=== PATIENT | male | born 1975 | race Caucasian/White ===

== ENCOUNTER 2021-03-31 13:08 | Outpatient (REF) | payer OTHER, SELFPAY | END 2021-03-31 13:09 | disposition home or self-care (01) | LOC: HO.LAB 13:08 | PROVIDERS: PCP Internal Medicine; Visit Provider Internal Medicine | DX: Z20.822 Contact with and (suspected) exposure to COVID-19 (principal) | CPT/HCPCS: U0003; U0005 ==

== ENCOUNTER 2021-04-07 11:23 | Outpatient (REF) | payer OTHER, SELFPAY | END 2021-04-07 11:24 | disposition home or self-care (01) | LOC: HO.LAB 11:23 | PROVIDERS: PCP Internal Medicine; Visit Provider Internal Medicine | DX: Z20.822 Contact with and (suspected) exposure to COVID-19 (principal) | CPT/HCPCS: C9803; U0003; U0005 ==

== ENCOUNTER 2021-08-05 12:35 | Outpatient (REF) | payer OTHER, SELFPAY ==
[2021-08-05 14:15] LABS: Estimated Average Glucose 126 mg/dL
[2021-08-05 14:25] LABS: Alanine Aminotransferase 43 U/L (0-40); Albumin Level 4.7 g/dL (3.5-5.0); Alkaline Phosphatase 60 U/L (39-117); Anion Gap 13 (12-20); Aspartate Amino Transferase 27 U/L (5-37); Bilirubin Total 0.8 mg/dL (0.0-1.0); Blood Urea Nitrogen 12 mg/dL (9-16); Calcium 9.8 mg/dL (8.4-10.2); Carbon Dioxide 27 mmol/L (22-29); Chloride 106 mmol/L (96-108); Estimated Glomerular Filt Rate > 60; Glucose Random 85 mg/dL (60-115); Sodium 142 mmol/L (135-145); Total Protein 7.6 g/dL (6.5-8.0)
[2021-08-07 04:31] LABS: LDL Cholesterol Direct 141 mg/dL (<100)
== END 2021-08-05 12:36 | disposition home or self-care (01) ==
LOC: HO.HMGCLDS 12:35
PROVIDERS: PCP Internal Medicine; Visit Provider Internal Medicine
DX: Z00.01 Encounter for general adult medical examination with abnormal findings (principal); E66.09 Other obesity due to excess calories; R73.03 Prediabetes; G89.29 Other chronic pain; M54.9 Dorsalgia, unspecified
CPT/HCPCS: 36415; 80053; 83036; 83721

== ENCOUNTER 2022-09-30 13:02 | Outpatient (REF) | payer OTHER, SELFPAY ==
--- NOTE | ~2022-09-30 | XR_ITS ---
EXAMINATION: XR KNEE AP STANDING CLINICAL INFORMATION: Pain and bilateral knee. COMPARISON: None available. TECHNIQUE: AP bilateral standing view of the knees was obtained. Lateral view each knee. FINDINGS: BILATERAL AP KNEE STANDING: The medial and lateral compartment joint space is maintained normal. No loose bodies, bony erosive changes, acute fracture or dislocation seen. LEFT KNEE: There is mild anterior superior patellar enthesophyte. No joint effusion seen. There are no loose bodies and no acute fracture. RIGHT KNEE: There is moderate anterior superior patellar enthesophyte with minimal suprapatellar joint effusion. No loose bodies or bony erosive changes. XR/XR knee standing BI IMPRESSION: 1. Bilateral anterior superior patellar enthesophytes. 2. Minimal right knee suprapatellar joint effusion. 3. No acute fracture or dislocation. The tricompartment joint space is normal.
[2022-09-30 14:16] LABS: Estimated Average Glucose 120 mg/dL; Hemoglobin A1C 149.1775 umol/L; Hemoglobin A1c % 5.8 %
[2022-09-30 15:04] LABS: Alanine Aminotransferase 48 U/L (0-40); Albumin Level 4.7 g/dL (3.5-5.0); Alkaline Phosphatase 72 U/L (39-117); Anion Gap 12 (12-20); Aspartate Amino Transferase 36 U/L (5-37); Bilirubin Total 0.6 mg/dL (0.0-1.0); Blood Urea Nitrogen 13 mg/dL (9-16); Calcium 9.6 mg/dL (8.4-10.2); Carbon Dioxide 28 mmol/L (22-29); Chloride 107 mmol/L (96-108); Estimated Glomerular Filt Rate > 60; Glucose Random 80 mg/dL (60-115); Potassium 4.3 mmol/L (3.3-5.1); Sodium 143 mmol/L (135-145); Total Protein 7.3 g/dL (6.5-8.0); Uric Acid 8.3 mg/dL (3.4-7.0)
[2022-10-02 12:54] LABS: Lyme Abs Screen <0.90 index
== END 2022-09-30 13:03 | disposition home or self-care (01) ==
LOC: HO.HMGCLDS 13:02
PROVIDERS: PCP Internal Medicine; Visit Provider Internal Medicine
DX: M25.562 Pain in left knee (principal); M25.561 Pain in right knee; E66.09 Other obesity due to excess calories; R73.03 Prediabetes; M13.80 Other specified arthritis, unspecified site; I10 Essential (primary) hypertension
CPT/HCPCS: 36415; 73565; 80053; 83036; 84550; 86617; 86618

== ENCOUNTER 2023-07-06 11:14 | Outpatient (AMB) | payer OTHER, SELFPAY ==
[2023-07-06 11:15] VITALS: BP 128/80; PULSE 62; O2SAT 99; BMI 34.0
--- NOTE | 2023-07-06 11:15 | A.OFFPC_ITS ---
Vital Signs 07/06/23 11:15 Height 5 ft 10 in Weight 237 lb BMI 34.0 BP 128/80 Blood Pressure Location Lt brachial Position Sitting Pulse 62 Pulse Source Pulse Oximeter Pulse Oximetry (%) 99 Oxygen Delivery Method Room Air Intake Visit Reasons: Med review Allergies No Known Allergies Allergy (Verified 07/06/23 11:16) Medication List - Last Reconciled 07/06/23 by Shasha Dean MD atenolol 25 mg PO DAILY 90 days Tobacco use date assessed: 07/06/23 Dental Screening Dental Screen Date: 07/06/23 Did you have a dental visit in the last 12 months?: No Did you have a dental problem in the last 6 months where you did not have access to dental care?: No Was dental information given to patient?: Patient has dentist HPI Med review HPI Details Patient is a 47-year-old gentleman with history of hypertension primary osteoarthritis multiple joints came today for regular follow-up appointment Patient was last seen September of 2022 usually comes in every six-month missed his follow-up appointment. He is due for labs His blood pressure is stable he is taking atenolol 25 mg and is tolerating medication without any side effects. BMI is elevated patient is trying to lose weight. Smoke marijuana to sleep at night only [facility], [facility] Social History Housing: House Patient Tobacco Use Status: Never used Tobacco e-Cigarette/Vaping Use: Never Used Current occupational status: employed Cognitive needs: No Hearing needs: No Vision needs: No Questionnaire PHQ-9 Over the last 2 weeks, how often have you been bothered by any of the following problems? 1. Little interest or pleasure in doing things: not at all 2. Feeling down, depressed, or hopeless: not at all 3. Trouble falling or staying asleep, or sleeping too much: not at all 4. Feeling tired or having little energy: not at all 5. Poor appetite or overeating: not at all 6. Feeling bad about yourself - or that you are a failure or have let yourself or your family down: not at all 7. Trouble concentrating on things, such as reading the newspaper or watching television: not at all 8. Moving or speaking so slowly that other people could have noticed. Or the opposite - being so fidgety or restless that you have been moving around a lot more than usual: not at all 9. Thoughts that you would be better off or of hurting yourself in some way: not at all Total score: 0 Depression Screening Interpretation: Negative Depression Screening Done: Yes 13441 - PHQ-9 Billing: Yes Source: Developed by Drs. Kevin Aguilar, Juan Diego Raza and colleagues, with an educational alejandro from [employer]. Thrive Questionnaire Date Thrive assessed: 07/06/23 I am a: Patient What is your living situation today?: I have a steady place to live Within the past 12 months, did the food you bought not last and you didn't have the money to get more?: Never true Within the past 12 months, did you worry whether your food would run out before you got money to buy more?: Never true Do you have trouble paying for medicines?: No Do you have trouble getting transportation to medical appointments?: No Do you have trouble paying your heating and electricity bill?: No Do you have trouble taking care of your child, family member or friend?: No Do you have trouble with day-to-day activities such as bathing, preparing meals, shopping, managing finances, etc.?: No Are you currently unemployed and looking for a job?: No Are you interested in more education?: Yes Please select the resources that you would like help with: None Currently or been in a relationship where the following occur: no concerns reported ELAINE-7 AMB Questionnaire ELAINE-7 Date ELAINE - 7 assessed: 07/06/23 Feeling nervous, anxious, or on edge: 0 = Not at all Not being able to stop or control worryin = Not at all Worrying too much about different things: 0 = Not at all Trouble relaxin = Not at all Being so restless that it is hard to sit still: 0 = Not at all Becoming easily annoyed or irritable: 0 = Not at all Feeling afraid as if something awful might happen: 0 = Not at all Total ELAINE-7 score (0-4 normal; 5-9 mild; 10-14 moderate; 15-21 severe): 0 Source: Developed by Freya Bob Kurt Kroenke and colleagues, with an educational alejandro from [employer]. ELAINE-7 Assessment Billing ELAINE-7 Assessment Tool: ELAINE-7 Assessment 11738 Review of Systems Const Denies chills and Denies fever(s) ENT Denies epistaxis and Denies nasal discharge Card Denies chest pain Resp Denies chest congestion, Denies cough and Denies hemoptysis GI Denies diarrhea and Denies nausea Skin/Breast Denies rash Neuro Reports no additional complaints Psych Reports no additional complaints Endo Reports no additional complaints Physical exam (Primary Care) Vital Signs: Last Vital Signs Pulse 62 07/06/23 11:15 BP 128/80 07/06/23 11:15 Pulse Ox 99 07/06/23 11:15 Oxygen Delivery Method Room Air 07/06/23 11:15 BMI result Body Mass Index 34.0 Tobacco/Smoking Status: Tobacco use Status Tobacco use date assessed 07/06/23 07/06/23 11:16 Patient Tobacco Use Status Never used Tobacco 07/06/23 11:16 e-Cigarette/Vaping Use Never Used 07/06/23 11:16 PHQ-9: PHQ-9 Score PHQ-9: Total score 0 07/06/23 11:37 Depression Screening Interpretation: Negative Thrive Assessment: Date of Thrive Assessment Date Thrive assessed 07/06/23 07/06/23 11:37 Currently or been in a relationship where the following occur: no concerns rep orted Const General: cooperative, comfortable and no acute distress Orientation/consciousness: patient oriented x3 HENMT Head: Yes normocephalic Eyes General: appearance normal, both eyes and all related structures Neck Neck: Yes supple Resp Effort & Inspection: normal respiratory effort, no cough and no stridor Cardio Rhythm: regular rhythm Heart sounds: S1 normal heart sound present and S2 normal heart sound present Skin General skin exam: turgor normal Neuro General: patient oriented x3, tone normal and moves all extremities Extrem Right lower extremity: no edema Left lower extremity: no edema Assessment and Plan Assessment & Plan (1) Hypertension, essential: Code(s): I10 - Essential (primary) hypertension (2) Obesity due to excess calories: Code(s): E66.09 - Other obesity due to excess calories Qualifiers: Body mass index: BMI 34.0-34.9 Obesity classification: adult class 1 (BMI 30 - 34.9) Serious obesity comorbidity presence: with serious comorbidity Qualified Code(s): E66.09 - Other obesity due to excess calories; Z68.34 - Body mass index [BMI] 34.0-34.9, adult (3) Pre-diabetes: Code(s): R73.03 - Prediabetes (4) Osteoarthritis involving multiple joints on both sides of body: Code(s): M15.9 - Polyosteoarthritis, unspecified Plan Patient is a 47-year-old gentleman with history of hypertension primary osteoarthritis multiple joints came today for regular follow-up appointment Patient was last seen September of 2022 usually comes in every six-month missed his follow-up appointment. He is due for labs His blood pressure is stable he is taking atenolol 25 mg and is tolerating medication without any side effects. BMI is elevated patient is trying to lose weight. Smoke marijuana to sleep at night only Medications: Refilled atenolol 25 mg PO DAILY 90 tabs 0RF 90 days Coding Level of Care Code Est Pt Level 4 (67703) Diagnoses Hypertension, essential I10 Class 1 obesity due to excess calories with serious comorbidity and body mass index (BMI) of 34.0 to 34.9 in adult E66.09; Z68.34 Body mass index: BMI 34.0-34.9 Obesity classification: adult class 1 (BMI 30 - 34.9) Serious obesity comorbidity presence: with serious comorbidity Pre-diabetes R73.03 Osteoarthritis involving multiple joints on both sides of body M15.9 Additional Codes ELAINE-7 Assessment Billing - ELAINE-7 Assessment Tool: ELAINE-7 Assessment [id number] ([id number])
== END 2023-07-06 11:34 | disposition home or self-care (01) ==
PROVIDERS: PCP Internal Medicine; Visit Provider Internal Medicine
DX: I10 Essential (primary) hypertension (principal); E66.09 Other obesity due to excess calories; Z68.34 Body mass index [BMI] 34.0-34.9, adult; R73.03 Prediabetes; M15.9 Polyosteoarthritis, unspecified
CPT/HCPCS: 99214

== ENCOUNTER 2024-12-08 10:52 | Outpatient (AMB) | payer OTHER, SELFPAY ==
[2024-12-08 10:54] VITALS: BP 136/86; PULSE 65; RESP 16; TEMP 37.1; O2SAT 97; BMI 31.9
--- NOTE | 2024-12-08 10:54 | A.OFFPC_ITS ---
Vital Signs 12/08/24 10:54 Height 5 ft 10 in Weight 222 lb 6 oz BMI 31.9 BP 136/86 Blood Pressure Location Rt brachial Position Sitting Respiration 16 Pulse 65 Pulse Source Pulse Oximeter Temp 98.7 F Temp Source Oral Pulse Oximetry (%) 97 Oxygen Delivery Method Room Air Intake Visit Reasons: Pulled muscle-back Allergies No Known Allergies Allergy (Verified 12/08/24 10:58) Medication List - Last Reconciled 12/08/24 by Shasha Dean MD atenolol 25 mg PO DAILY 90 days Tobacco use date assessed: 12/08/24 Dental Screening Dental Screen Date: 12/08/24 Did you have a dental visit in the last 12 months?: No Did you have a dental problem in the last 6 months where you did not have access to dental care?: No Was dental information given to patient?: Patient has dentist HPI Pulled muscle-back HPI Details History - The patient is a 49-year-old male who was last seen more than a year ago presenting with right-sided mid back pain - The back pain began approximately six weeks ago after lifting a transmission while at work. - The patient describes intermittent mus ean spasms and states that the pain sometimes wraps around to the front. - Pain severity increases with certain m ovements, prolonged sleep, or after being active. - Ibuprofen has been used intermittently for pain relief, though the patient is uncertain of its effectiveness. - The patient also reports a history of back muscle spasms and lumbar pain. - The patient ceased taking atenolol and has not consulted a doctor about blood pressure since June of last year. Current self-reported blood pressure is 136. 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 - Recent dietary changes resulting in we ight loss due to new job Medications - Ibuprofen intermittently for pain waqas brendon - Previously prescribed atenolol for hyp ertension (discontinued) Problem List - Hypertension - Mid-back pain - Prediabetes - noncardiac chest pain in the back - obesity - LFTs Diagnostic results Labs: - Previous liver enzyme elevation Patient Instructions - Take pain medication as needed diclof enic 75 mg bid with food - cyclobenzaprin 10 mg at bed time - Avoid straining, lifting, and twisting to allow the back to heal - Schedule a follow-up appointment in x weeks to two months - Labs and x-rays to be completed as ord ered - Monitor blood pressure and seek timely care if necessary Review of Systems General: No fever no chills neurological: No headaches no dizziness ear nose throat: No sore throat no hearing difficulty no ear pain cardiovascular: No syncope, no palpitations gastrointestinal: No nausea vomiting or diarrhea endocrine: No polyuria polydipsia no heat intolerance genitourinary: No dysuria skin: No new complaints Physical Exam general: No acute distress HEENT: No acute findings neck: Supple respiratory system: Able to talk in full sentences, no audible wheeze, no stridor Chest: Tender over 6 so 7 rib posteriorly next 2 mid back, pain with deep breathing as well cardiovascular: S1-S2 RRR gastrointestinal: No right upper quadrant pain extremities: No new findings X [employer]: Alert, awake, oriented x3, motor sensory intact skin: Normal turgor [facility] Social History Housing: House Patient Tobacco Use Status: Never used Tobacco e-Cigarette/Vaping Use: Never Used Current occupational status: employed Cognitive needs: No Hearing needs: No Vision needs: No Questionnaire PHQ-9 Over the last 2 weeks, how often have you been bothered by any of the following problems? 1. Little interest or pleasure in doing things: not at all 2. Feeling down, depressed, or hopeless: not at all 3. Trouble falling or staying asleep, or sleeping too much: several days 4. Feeling tired or having little energy: several days 5. Poor appetite or overeating: several days 6. Feeling bad about yourself - or that you are a failure or have let yourself or your family down: not at all 7. Trouble concentrating on things, such as reading the newspaper or watching television: not at all 8. Moving or speaking so slowly that other people could have noticed. Or the opposite - being so fidgety or restless that you have been moving around a lot more than usual: several days 9. Thoughts that you would be better off or of hurting yourself in some way: not at all Total score: 4 Depression Screening Interpretation: Negative Depression Screening Done: Yes 70748 - PHQ-9 Billing: Yes Source: Developed by Drs. Kevin Aguilar, Freya Valladares, Juan Diego Blanchard and colleagues, with an educational alejandro from [employer]. Thrive Questionnaire Date Thrive assessed: 12/08/24 I am a: Patient What is your living situation today?: I have a steady place to live Within the past 12 months, did the food you bought not last and you didn't have the money to get more?: Sometimes True Within the past 12 months, did you worry whether your food would run out before you got money to buy more?: Sometimes True Do you have trouble paying for medicines?: No Do you have trouble getting transportation to medical appointments?: No Do you have trouble paying your heating and electricity bill?: No Do you have trouble taking care of your child, family member or friend?: No Do you have trouble with day-to-day activities such as bathing, preparing meals, shopping, managing finances, etc.?: No Are you currently unemployed and looking for a job?: No Are you interested in more education?: Yes Please select the resources that you would like help with: None Currently or been in a relationship where the following occur: No concerns reported THRIVE Score: 2 AUDIT C Alcohol Use Questionnaire (AUDIT-C) 1. How often do you have a drink containing alcohol?: Monthly or less 2. How many drinks containing alcohol do you have on a typical day when you are drinking?: 1 or 2 3. How often do you have six or more drinks on one occasion?: Never Total Score: 1 Score Reviewed/Action Taken: Yes ELAINE-7 AMB Questionnaire ELAINE-7 Date ELAINE - 7 assessed: 12/08/24 Feeling nervous, anxious, or on edge: 1 = Several days Not being able to stop or control worryin = Not at all Worrying too much about different things: 1 = Several days Trouble relaxin = Several days Being so restless that it is hard to sit still: 1 = Several days Becoming easily annoyed or irritable: 1 = Several days Feeling afraid as if something awful might happen: 1 = Several days Total ELAINE-7 score (0-4 normal; 5-9 mild; 10-14 moderate; 15-21 severe): 6 Source: Developed by Drs. Kevin Aguilar, Freya Valladares, Juan Diego Blanchard and colleagues, with an educational alejandro from [employer]. ELAINE-7 Assessment Billing ELAINE-7 Assessment Tool: ELAINE-7 Assessment 57313 Physical exam (Primary Care) Vital Signs: Last Vital Signs Temp 98.7 F 12/08/24 10:54 Pulse 65 12/08/24 10:54 Resp 16 12/08/24 10:54 BP 136/86 12/08/24 10:54 Pulse Ox 97 12/08/24 10:54 Oxygen Delivery Method Room Air 12/08/24 10:54 BMI result Body Mass Index 31.9 Tobacco/Smoking Status: Tobacco use Status Tobacco use date assessed 12/08/24 12/08/24 10:55 Patient Tobacco Use Status Never used Tobacco 12/08/24 10:55 e-Cigarette/Vaping Use Never Used 12/08/24 10:55 PHQ-9: PHQ-9 Score PHQ-9: Total score 4 12/08/24 11:12 Depression Screening Interpretation: Negative Thrive Assessment: Date of Thrive Assessment Date Thrive assessed 12/08/24 12/08/24 10:55 Currently or been in a relationship where the following occur: No concerns reported Coding Level of Care Code Est Pt Level 4 (26823) Diagnoses Rib pain on right side R07.81 Hypertension, essential I10 Class 1 obesity due to excess calories with serious comorbidity and body mass index (BMI) of 34.0 to 34.9 in adult E66.09; Z68.34 Body mass index: BMI 34.0-34.9 Obesity classification: adult class 1 (BMI 30 - 34.9) Serious obesity comorbidity presence: with serious comorbidity Pre-diabetes R73.03 LFT elevation R79.89 Mid back pain M54.9 Additional Codes ELAINE-7 Assessment Billing - ELAINE-7 Assessment Tool: ELAINE-7 Assessment 00542 ([id number]) PHQ-9 - 24493 - PHQ-9 Billing: Yes ([id number]) Assessment & Plan Assessment & Plan (1) Rib pain on right side: Code(s): R07.81 - Pleurodynia Category: Medical (2) Hypertension, essential: Code(s): I10 - Essential (primary) hypertension Category: Medical (3) Obesity due to excess calories: Code(s): E66.09 - Other obesity due to excess calories Category: Medical Qualifiers: Body mass index: BMI 34.0-34.9 Obesity classification: adult class 1 (BMI 30 - 34.9) Serious obesity comorbidity presence: with serious comorbidity Qualified Code(s): E66.09 - Other obesity due to excess calories; Z68.34 - Body mass index [BMI] 34.0-34.9, adult (4) Pre-diabetes: Code(s): R73.03 - Prediabetes Category: Medical (5) LFT elevation: Code(s): R79.89 - Other specified abnormal findings of blood chemistry Category: Medical (6) Mid back pain: Code(s): M54.9 - Dorsalgia, unspecified Category: Medical Plan History - The patient is a 49-year-old male who was last seen more than a year ago presenting with right-sided mid back pain - The back pain began approximately six weeks ago after lifting a transmission while at work. - The patient describes intermittent muscle spasms and states that the pain sometimes wraps around to the front. - Pain severity increases with certain movements, prolonged sleep, or after being active. - Ibuprofen has been used intermittently for pain relief, though the patient is uncertain of its effectiveness. - The patient also reports a history of back muscle spasms and lumbar pain. - The patient ceased taking atenolol and has not consulted a doctor about blood pressure since June of last year. Current self-reported blood pressure is 136. Medical History: - History of hypertension - Prior incidents of back muscle spasms - Previous lumbar pain - Prediabetes - obesity Social History: - Works in the automotive industry, involving heavy lifting and physical activity - Recent dietary changes resulting in weight loss due to new job Medications - Ibuprofen intermittently for pain management - Previously prescribed atenolol for hypertension (discontinued) Problem List - Hypertension - Mid-back pain - Prediabetes - noncardiac chest pain in the back - obesity - LFTs Diagnostic results Labs: - Previous liver enzyme elevation Patient Instructions - Take pain medication as needed diclofenic 75 mg bid with food - cyclobenzaprin 10 mg at bed time - Avoid straining, lifting, and twisting to allow the back to heal - Schedule a follow-up appointment in six weeks to two months - Labs and x-rays to be completed as ordered - Monitor blood pressure and seek timely care if necessary Orders: Orders LDL Cholesterol Direct Today E66.09 - Other obesity due to excess calories, I10 - Essential (primary) hypertension, R73.03 - Prediabetes, R79.89 - Other specified abnormal findings of blood chemistry, Z68.34 - Body mass index [BMI] 34.0-34.9, adult Vitamin D 25-OH (D2 and D3) Today E66.09 - Other obesity due to excess calories, I10 - Essential (primary) hypertension, R73.03 - Prediabetes, R79.89 - Other specified abnormal findings of blood chemistry, Z68.34 - Body mass index [BMI] 34.0-34.9, adult XR ribs RT min 3V w CXR1V Today R07.81 - Pleurodynia Complete Blood Count Auto Diff Today E66.09 - Other obesity due to excess calories, I10 - Essential (primary) hypertension, R73.03 - Prediabetes, R79.89 - Other specified abnormal findings of blood chemistry, Z68.34 - Body mass index [BMI] 34.0-34.9, adult Comprehensive Met. Panel Today E66.09 - Other obesity due to excess calories, I10 - Essential (primary) hypertension, R73.03 - Prediabetes, R79.89 - Other specified abnormal findings of blood chemistry, Z68.34 - Body mass index [BMI] 34.0-34.9, adult TSH reflex Free T4 Today E66.09 - Other obesity due to excess calories, I10 - Essential (primary) hypertension, R73.03 - Prediabetes, R79.89 - Other specified abnormal findings of blood chemistry, Z68.34 - Body mass index [BMI] 34.0-34.9, adult Hemoglobin A1c Today R73.03 - Prediabetes Medications: New diclofenac sodium 75 mg PO BID 10 days 20 tabs 0RF pain cyclobenzaprine 10 mg PO BEDTIME PRN 30 tabs 0RF muscle spasm Refilled atenolol 25 mg PO DAILY 90 days 90 tabs 0RF
== END 2024-12-08 11:14 | disposition home or self-care (01) ==
LOC: HO.HMCC 10:53
PROVIDERS: PCP Internal Medicine; Visit Provider Internal Medicine
DX: R07.81 Pleurodynia (principal); I10 Essential (primary) hypertension; E66.09 Other obesity due to excess calories; Z68.34 Body mass index [BMI] 34.0-34.9, adult; R73.03 Prediabetes; R79.89 Other specified abnormal findings of blood chemistry; M54.9 Dorsalgia, unspecified

== ENCOUNTER 2024-12-08 10:52 | Outpatient (REF) | payer OTHER, SELFPAY ==
--- NOTE | ~2024-12-08 | XR_ITS ---
EXAMINATION: XR RIBS, RIGHT CLINICAL INFORMATION: R07.81 - Pleurodynia COMPARISON: Chest x-ray 06/22/2018 TECHNIQUE: 3 views of the right ribs and AP chest were obtained. FINDINGS: Heart and the stomach contours are within normal limits. The lungs are clear and well expanded. No pneumothorax is identified. No change. Ribs demonstrate no deformity, cortical offset or step-off, and no fracture lines. XR/XR ribs RT min 3V w CXR1V IMPRESSION: Unremarkable examination. Electronically signed by: Charbel Ayala MD 12/08/2024 11:51 AM EDT
[2024-12-08 12:57] LABS: MANUAL DIFF FLAG NO
[2024-12-08 13:17] LABS: Basophils Percent Auto 0.5 % (0-2); Eosinophils Absolute Auto 0.2 X10*3/uL (0.0-0.4); Eosinophils Percent Auto 2.3 % (0-4); Hematocrit 42.6 % (42.0-52.0); Hemoglobin 15.1 g/dl (14.0-18.0); Imm Gran Abs Auto 0.01 X10*3/uL (0.00-0.03); Imm Gran Pct Auto 0.1 % (0.0-0.4); Lymphocytes Absolute Auto 2.1 X10*3/uL (1.2-4.9); Lymphocytes Percent Auto 28.6 % (20-40); Mean Corpuscular HGB Conc 35.4 g/dl (31.0-36.0); Mean Corpuscular Volume 87.5 fL (80.0-98.0); Mean Platelet Volume 10.5 fL (9.4-12.4); Monocytes Absolute Auto 0.5 X10*3/uL (0.1-1.2); Monocytes Percent Auto 6.5 % (2-11); Neutrophils Absolute Auto 4.5 x10*3/uL (2.0-8.3); Platelet Count 227 X10*3/uL (160-400); Red Blood Count 4.87 X10*6/uL (4.60-5.80); Red Cell Distribution Width 12.8 % (11.0-16.0); White Blood Count 7.3 X10*3/uL (4.8-10.8)
[2024-12-08 13:32] LABS: Estimated Average Glucose 117 mg/dL; Hemoglobin A1C 152.5209 umol/L; Hemoglobin A1c % 5.7 % (<6.0)
[2024-12-08 13:42] LABS: Alanine Aminotransferase 43 U/L (0-40); Alkaline Phosphatase 68 U/L (39-117); Anion Gap 12 (12-20); Aspartate Amino Transferase 37 U/L (5-37); Bilirubin Total 0.9 mg/dL (0.0-1.0); Blood Urea Nitrogen 12 mg/dL (9-16); Calcium 9.8 mg/dL (8.4-10.2); Carbon Dioxide 25 mmol/L (22-29); Chloride 107 mmol/L (96-108); Estimated Glomerular Filt Rate > 60; Glucose Random 118 mg/dL (60-115); Potassium 4.1 mmol/L (3.3-5.1); Sodium 140 mmol/L (135-145); TSH reflex Free T4 2.41 uIU/mL (0.32-4.0); Total Protein 7.7 g/dL (6.5-8.0)
[2024-12-09 06:54] LABS: LDL Cholesterol Direct 154 mg/dL (<100)
[2024-12-13 15:29] LABS: Vitamin D 25-OH, D2 <4 ng/mL; Vitamin D 25-OH, D3 28 ng/mL; Vitamin D 25-OH, Total 28 ng/mL (30-100)
== END 2024-12-08 10:53 | disposition home or self-care (01) ==
LOC: HO.HMGCX 10:52
PROVIDERS: PCP Internal Medicine; Visit Provider Internal Medicine
DX: R07.81 Pleurodynia (principal); I10 Essential (primary) hypertension; E66.09 Other obesity due to excess calories; Z68.34 Body mass index [BMI] 34.0-34.9, adult; R73.03 Prediabetes; R79.89 Other specified abnormal findings of blood chemistry; M54.9 Dorsalgia, unspecified; Z13.31 Encounter for screening for depression
CPT/HCPCS: 36415; 71101; 80053; 82306; 83036; 83721; 84443; 85025; 96127

== ENCOUNTER → 2024-12-08 11:16 | Outpatient (BNV) | payer OTHER, SELFPAY | PROVIDERS: PCP Internal Medicine; Visit Provider Radiology Diagnostic Radiology | DX: R07.81 Pleurodynia (principal) | CPT/HCPCS: 71101 ==

== ENCOUNTER 2025-01-19 10:24 | Outpatient (AMB) | payer OTHER, SELFPAY ==
[2025-01-19 10:30] VITALS: BP 136/88; PULSE 86; RESP 16; TEMP 36.6; O2SAT 98; BMI 31.4
--- NOTE | 2025-01-19 10:30 | A.OFFPC_ITS ---
Vital Signs 01/19/25 10:30 Height 5 ft 10 in Weight 219 lb BMI 31.4 BP 136/88 Blood Pressure Location Lt brachial Position Sitting Respiration 16 Pulse 86 Pulse Source Pulse Oximeter Temp 97.8 F Temp Source Oral Pulse Oximetry (%) 98 Intake Visit Reasons: Annual PE Opinion Polls Survey Worker Required: No Allergies No Known Allergies Allergy (Verified 01/19/25 10:30) Medication List - Last Reconciled 01/19/25 by Shasha Dean MD atenolol 25 mg PO DAILY 90 days Tobacco use date assessed: 12/08/24 Dental Screening Dental Screen Date: 12/08/24 HPI Annual PE HPI Details History of Present Illness - The patient is a 49 year old male pres enting for an annual physical examination. - Previously experienced low back pain, which has subsided with medication (diclofenac). No acute pain noted now, but occasional mild discomfort if strained. - History of hyperlipidemia with LDL lev els approximately 140s-150s since 2021, latest LDL at 154. - Recent symptoms include difficulty uri nating on a single occasion, resolved after a hot shower. - Noticed a temporary small, hard mass i n the scrotum that comes and goes, previously diagnosed with a benign cyst in adolescence. - Reports occasional sensation of food g etting stuck if eating too quickly, no persistent swallowing difficulties. - Mild knee discomfort resolved with rec ent weight loss. - Experienced occasional trouble with ur inary frequency, history of familial prostate issues. 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 - Reports previous weight loss, currentl y with BMI of 31.4, categorized as obese. - Discussed lifestyle changes, including further weight loss as part of health maintenance. Family History: - Positive family history of prostate pr oblems (father). Health Maintenance - Current cholesterol needs monitoring, with LDL ideally less than 130. - BMI classified as obese; recommended w eight target is below 200 pounds. - Vitamin D supplementation advised at 1 000 IU daily. - Due for colonoscopy, appointment to be scheduled. - Tetanus vaccination recommended; compl eted during the visit. 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 Diagnostic results - Labs: Bloodwork from November indicates no rmal CBC, electrolytes, kidney function, and liver enzymes. However, LDL is elevated at 154. - Rib X-ray: Normal. Patient Instructions - Lose more weight to target at least 20 pounds reduction to move out of obesity range. - Take vitamin D supplement, 1000 IU carole ly. - Schedule and prepare for a colonoscopy ; follow directives for bowel preparation. - Continue monitoring blood pressure at home and maintain under 140/90. - Follow up in six months for hypertensi on management. - Urinary consultation for difficulty ur ination and testicular abnormalities Review of Systems - General: No fever no chills - Neurological: No headaches no dizzin ess - Ear nose throat: No sore throat no hearing difficulty no ear pain - Cardiovascular: No syncope, no chest pain, no palpitations - Gastrointestinal: No nausea vomiting or diarrhea - Endocrine: No polyuria polydipsia no heat intolerance - Genitourinary: No dysuria - Skin: No new complaints Physical Exam General: Cooperative, healthy appearing, comfortable, no acute distress Orientation: Patient oriented x3 Head: Normal to inspection Ears: Within normal limit visually Nose: Normal external nose present Face and sinus: Normal facial exam Eyes: Appearance normal, extraocular movement intact pupils reactive Neck: Normal visual inspection and supple Respiratory: Normal respiratory effort and able to speak in complete sentences. Clear to auscultation, no stridor Cardiovascular: S1 and S2 RRR GI: Normal to inspection. Soft to palpation and nontender Skin: Turgor normal, no acute findings, benign mole noted Neuro: Patient oriented x3, motor sensory intact, balance intact, tandem pass Extremities: Normal to inspection, knees improved with weight loss, no swelling or sweating [facility] Surgical History No pertinent past surgical history Social History Housing: House Patient Tobacco Use Status: Never used Tobacco e-Cigarette/Vaping Use: Never Used Current occupational status: employed Cognitive needs: No Hearing needs: No Vision needs: No Questionnaire Thrive Questionnaire Date Thrive assessed: 01/19/25 I am a: Patient What is your living situation today?: I have a steady place to live Within the past 12 months, did the food you bought not last and you didn't have the money to get more?: Sometimes True Within the past 12 months, did you worry whether your food would run out before you got money to buy more?: Sometimes True Do you have trouble paying for medicines?: No Do you have trouble getting transportation to medical appointments?: No Do you have trouble paying your heating and electricity bill?: No Do you have trouble taking care of your child, family member or friend?: No Do you have trouble with day-to-day activities such as bathing, preparing meals, shopping, managing finances, etc.?: No Are you currently unemployed and looking for a job?: No Are you interested in more education?: Yes Please select the resources that you would like help with: None Currently or been in a relationship where the following occur: No concerns reported THRIVE Score: 2 ELAINE-7 AMB Questionnaire ELAINE-7 Date ELAINE - 7 assessed: 12/08/24 Source: Developed by Drs. Kevin Aguilar, Freya Valladares, Juan Diego Blanchard and colleagues, with an educational alejandro from [employer]. Physical exam (Primary Care) Vital Signs: Last Vital Signs Temp 97.8 F 01/19/25 10:30 Pulse 86 01/19/25 10:30 Resp 16 01/19/25 10:30 BP 136/88 01/19/25 10:30 Pulse Ox 98 01/19/25 10:30 BMI result Body Mass Index 31.4 Tobacco/Smoking Status: Tobacco use Status Tobacco use date assessed 12/08/24 01/19/25 10:31 Patient Tobacco Use Status Never used Tobacco 01/19/25 10:31 e-Cigarette/Vaping Use Never Used 01/19/25 10:31 Thrive Assessment: Date of Thrive Assessment Date Thrive assessed 01/19/25 01/19/25 10:31 Currently or been in a relationship where the following occur: No concerns reported Immunizations Boostrix Tdap 2.5 Lf unit-8 mcg-5 Lf/0.5 mL intramuscular syringe Performing Provider: Shasha Dean MD Performing Location: [facility] Administered by: Johnathan Frazier CMA on 01/19/25 11:13 Dose Route Admin Location Dispensed Lot Number Expiration Date [facility] Industrial Custodian 0.5 mL IM Left Deltoid 0.5 mL [id number] 02/24/27 [id number] [employer] Total Dispensed Waste 0.5 mL 0 % VIS Given Date VIS Provided VIS Publication Date 01/19/25 Single Vaccine 21 Eligibility Eligibility Date Funding Source Not [facility] Eligible 01/19/25 Private Coding Level of Care Code Est Pt Level 3 (83234) Est Pt Prev Care 40-64y(71821) Diagnoses Encounter for general adult medical examination with abnormal findings Z00.01 Colon cancer screening Z12.11 Difficulty urinating R39.198 Hypertension, essential I10 LFT elevation R79.89 Class 1 obesity due to excess calories with serious comorbidity and body mass index (BMI) of 34.0 to 34.9 in adult E66.09; Z68.34 Body mass index: BMI 34.0-34.9 Obesity classification: adult class 1 (BMI 30 - 34.9) Serious obesity comorbidity presence: with serious comorbidity Assessment & Plan Assessment & Plan (1) Encounter for general adult medical examination with abnormal findings: Code(s): Z00.01 - Encounter for general adult medical examination with abnormal findings Category: Medical (2) Colon cancer screening: Code(s): Z12.11 - Encounter for screening for malignant neoplasm of colon Category: Medical (3) Difficulty urinating: Code(s): R39.198 - Other difficulties with micturition Category: Medical (4) Hypertension, essential: Code(s): I10 - Essential (primary) hypertension Category: Medical (5) LFT elevation: Code(s): R79.89 - Other specified abnormal findings of blood chemistry Category: Medical (6) Obesity due to excess calories: Code(s): E66.09 - Other obesity due to excess calories Category: Medical Qualifiers: Body mass index: BMI 34.0-34.9 Obesity classification: adult class 1 (BMI 30 - 34.9) Serious obesity comorbidity presence: with serious comorbidity Qualified Code(s): E66.09 - Other obesity due to excess calories; Z68.34 - Body mass index [BMI] 34.0-34.9, adult Plan History of Present Illness - The patient is a 49 year old male presenting for an annual physical examination. - Previously experienced low back pain, which has subsided with medication (diclofenac). No acute pain noted now, but occasional mild discomfort if strained. - History of hyperlipidemia with LDL levels approximately 140s-150s since 2021, latest LDL at 154. - Recent symptoms include difficulty urinating on a single occasion, resolved after a hot shower. - Noticed a temporary small, hard mass in the scrotum that comes and goes, previously diagnosed with a benign cyst in adolescence. - Reports occasional sensation of food getting stuck if eating too quickly, no persistent swallowing difficulties. - Mild knee discomfort resolved with recent weight loss. - Experienced occasional trouble with urinary frequency, history of familial prostate issues. 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 - Reports previous weight loss, currently with BMI of 31.4, categorized as obese. - Discussed lifestyle changes, including further weight loss as part of health maintenance. Family History: - Positive family history of prostate problems (father). Health Maintenance - Current cholesterol needs monitoring, with LDL ideally less than 130. - BMI classified as obese; recommended weight target is below 200 pounds. - Vitamin D supplementation advised at 1000 IU daily. - Due for colonoscopy, appointment to be scheduled. - Tetanus vaccination recommended; completed during the visit. 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 Diagnostic results - Labs: Bloodwork from November indicates normal CBC, electrolytes, kidney function, and liver enzymes. However, LDL is elevated at 154. - Rib X-ray: Normal. Patient Instructions - Lose more weight to target at least 20 pounds reduction to move out of obesity range. - Take vitamin D supplement, 1000 IU daily. - Schedule and prepare for a colonoscopy; follow directives for bowel preparation. - Continue monitoring blood pressure at home and maintain under 140/90. - Follow up in six months for hypertension management. - Urinary consultation for difficulty urination and testicular abnormalities Orders: Orders TDaP Immunization Today Z23 - Encounter for immunization Referrals Urology Referral R39.198 - Other difficulties with micturition Gastroenterology Referral Z12.11 - Encounter for screening for malignant neoplasm of colon
== END 2025-01-19 11:11 | disposition home or self-care (01) ==
LOC: HO.HMCC 10:25
PROVIDERS: PCP Internal Medicine; Visit Provider Internal Medicine
DX: Z00.01 Encounter for general adult medical examination with abnormal findings (principal); I10 Essential (primary) hypertension; E66.09 Other obesity due to excess calories; Z68.34 Body mass index [BMI] 34.0-34.9, adult; R79.89 Other specified abnormal findings of blood chemistry; Z12.11 Encounter for screening for malignant neoplasm of colon; R39.198 Other difficulties with micturition; Z23 Encounter for immunization

== ENCOUNTER → 2025-01-19 10:24 | Outpatient (BNVA) | payer OTHER, SELFPAY | PROVIDERS: PCP Internal Medicine; Visit Provider Internal Medicine | DX: Z00.01 Encounter for general adult medical examination with abnormal findings (principal); R39.198 Other difficulties with micturition; I10 Essential (primary) hypertension; R79.89 Other specified abnormal findings of blood chemistry; E66.09 Other obesity due to excess calories; Z68.34 Body mass index [BMI] 34.0-34.9, adult; Z23 Encounter for immunization | CPT/HCPCS: 90471; 90715 ==